=== PATIENT | female | born 1985 | race Two or more races ===

== ENCOUNTER 2025-06-16 19:19 | Emergency (ER) | payer MEDICAID, SELFPAY ==
[2025-06-16 19:20] VITALS: BMI 39.0
[2025-06-16 19:28] VITALS: BP 135/72; PULSE 121; RESP 18; TEMP 36.8; O2SAT 97
--- NOTE | 2025-06-16 19:50 | XR_ITS ---
Examination: CT abdomen and pelvis without contrast. Coronal 3-D reconstructions. Sagittal 2-D reconstructions. Date and time of exam: June 16, 2025, 2135 hours INDICATIONS: Onset pelvic pain today CTDI: vol (mGy): 15 DLP: (mGycm): 825 Technique: Axial images of the abdomen have been obtained, 3 mm slice thickness Intravenous contrast material has not been administered. Low dose protocols were performed. One or more of the following dose reduction techniques were used; automated exposure control, adjustment of the mA and/or KV according to patient size, use of iterative reconstruction technique. Findings: No visualized liver or splenic lesion No gallstones No pancreatic or adrenal mass No renal or ureteral calculi, no hydronephrosis Aorta normal size Normal appendix No bowel obstruction Retroverted uterus No adnexal mass Bladder intact L5-S1 3 mm central lumbar disc bulge contiguous with the right S1 nerve root IMPRESSION: No renal or ureteral calculi, no hydronephrosis Normal appendix No bowel obstruction or diverticulitis Consider pelvic sonography follow-up
[2025-06-16 20:19] LABS: Collection Type, Urine Clean Catch
[2025-06-16 20:20] LABS: Basophils # (Auto) 0.1 Thou/mm3 (0.0-0.2); Basophils % (Auto) 0 % (0-2.5); Eosinophils # (Auto) 0.3 Thou/mm3 (0.0-0.5); Eosinophils % (Auto) 1 % (0-10); Hematocrit 39.8 % (36.0-46.0); Hemoglobin 13.3 g/dL (12.0-16.0); Immature Granulocytes Auto 0.10 Thou/mm3 (0.00-0.00); Lymphocytes # (Auto) 2.5 Thou/mm3 (1.0-4.8); Lymphocytes % (Auto) 14 % (10-50); Mean Corpuscular HGB Conc 33.4 g/dl (31.0-37.0); Mean Corpuscular Hemoglobin 30.1 pg (25.0-35.0); Mean Corpuscular Volume 90 fL (80-100); Monocytes # (Auto) 0.8 Thou/mm3 (0.0-0.8); Monocytes % (Auto) 4 % (0-12); Neutrophils # (Auto) 14.3 Thou/mm3 (1.8-7.7); Neutrophils % (Auto) 79 % (37-80); Nucleated Red Blood Cell # 0.00 Thou/mm3 (0.00-0.00); Nucleated Red Blood Cell % 0 /100 WBC (0); Platelet Count 347 Thou/mm3 (140-440); RDW Standard Deviation 43.2 fL (36.4-46.3); Red Blood Count 4.42 Miln/mm3 (4.00-5.20); White Blood Count 18.0 Thou/mm3 (3.6-11.0)
[2025-06-16 20:33] LABS: Bilirubin,Urine Negative (Negative); Blood,Urine 3+ (Negative); Clarity,Urine Turbid (Clear/Hazy); Color,Urine Lt-Brown (Lt Yel-Yel); Glucose, Urine Negative (Negative); Ketones,Urine Negative (Negative); Leukocyte Esterase,Urine Positive (Negative); Nitrite,Urine Negative (Negative); PH,Urine 6.0 (5.0-7.0); Protein,Urine 1+ (Neg - Trace); RBC,Urine 1122 /hpf (0-3); Specific Gravity,Urine 1.012 (1.001-1.035); Squamous Epithelial Cell,Urine 3 /hpf (0-5); Urobilinogen,Urine Negative mg/dL (0.0-1.0); WBC,Urine 881 /hpf (0-5)
[2025-06-16 20:36] LABS: HCG Qualitative,Urine Negative
[2025-06-16 20:40] LABS: Alanine Aminotransferase 20 U/L (10-49); Albumin, Serum 4.7 gm/dL (3.5-5.0); Albumin/Globulin Ratio 1.7 (1.2-2.2); Alkaline Phosphatase 102 U/L (46-116); Anion Gap 11 (7-16); Aspartate Amino Transferase 18 U/L (0-34); BUN/Creatinine Ratio 12 Ratio (12-20); Bilirubin,Total 0.4 mg/dL (0.3-1.2); Blood Urea Nitrogen 11 mg/dL (9-23); Calcium 9.6 mg/dL (8.3-10.6); Calcium (Corrected) 9.6 mg/dL (8.5-10.1); Carbon Dioxide 24.0 mMol/L (20.0-31.0); Chloride 103 mMol/L (98-107); Creatinine (Component) 0.9 mg/dL (0.6-1.3); Estimated Creatinine Clearance 82.6 mL/min (>60); Globulin 2.8 gm/dL (2.3-3.5); Glucose 127 mg/dL (74-106); Lipase 34 U/L (12-53); Osmolality,Calculated 277 (275-295); Potassium 3.9 mMol/L (3.4-5.1); Sodium 138 mMol/L (136-145); Total Protein 7.5 gm/dL (5.7-8.2); eGFR > 60 See Note
[2025-06-16 22:45] LABS: Lactate (Lactic Acid) 1.4 mMol/L (0.4-2.0)
[2025-06-16] MEDS: cefTRIAXone 2 GM in SODIUM CHLORIDE 0.9% (Popper) 50 ML IV (23:10)
[2025-06-16] MEDS: SODIUM CHLORIDE 0.9% 1000 ML 1,000 ML 1800 ML IV (23:11)
--- NOTE | 2025-06-16 23:25 | EDNOTE_ITS ---
ED Abdominal Pain RME/HPI General Chief Complaint: Abdominal Pain Stated complaint: LOWER ABD PAIN, URINATING BLOOD Time seen by provider: 06/16/25 19:27 Arrival date/time: 06/16/25 19:19 This is a case of 39-year-old female with no medical history came in in the emergency room due to lower abdominal pain radiating to the back associated with painful urination and blood in urine today patient denies any fever chills nausea vomiting worsening of the symptoms this patient decided to sought consult here in the emergency room Limitations: no limitations Related Data Previous Rx's ?Medication ?Instructions ?Recorded naproxen 500 mg tablet 500 mg PO BID PRN pain #30 t abs 06/04/21 cephalexin 500 mg capsule 500 mg PO BID #20 caps 08/01 ciprofloxacin HCl 500 mg tablet 500 mg PO BID 10 days #20 tabs 06/16/25 ondansetron 4 mg disintegrating 4 mg PO Q8H #20 tabs 1 08/16/24 tablet phenazopyridine 200 mg tablet 200 mg PO TID 6 doses #6 tabs 06/16/25 (Pyridium) tramadol 50 mg tablet 50 mg PO Q8H PRN pain #10 ta bs 06/16/25 Allergies Allergy/AdvReac Type Severity Reaction Status Date / Time No Known Allergies Allergy Verified 06/16/25 19:20 Review of Systems Review of Systems Systems Reviewed: All systems reviewed, normal except as documented Constitutional Constitutional: Reports system reviewed and no additional complaints, except as documented and Reports as per HPI ENT Ears, Nose, Mouth, and Throat: Denies dysphagia and Denies odynophagia Cardiovascular Cardiovascular: Reports system reviewed and no additional complaints, except as documented and Reports as per HPI Respiratory Respiratory: Reports system reviewed and no additional complaints, except as documented and Reports as per HPI Gastrointestinal Gastrointestinal: Reports abdominal pain, Denies belching, Denies bloating, Denies change in bowel habits, Denies change in stool character, Denies coffee ground emesis, Denies constipation, Denies cramping, Denies diarrhea, Denies dyspepsia, Denies dysphagia, Denies early satiety, Denies excessive flatus, Mumtaz es fecal incontinence, Denies heartburn, Denies hematemesis, Denies hematochezia, Denies loose stools, Denies melena, Denies nausea, Denies odynophagia, Denies tenesmus and Denies vomiting Genitourinary Genitourinary: Reports system reviewed and no additional complaints, except as documented, Reports dysuria, Reports hematuria and Reports urinary urgency Neurologic Neurologic: Reports system reviewed and no additional complaints, except as documented and Reports as per HPI Past Medical History Past Medical History CARDIAC: Negative Congestive Heart Failure RESPIRATORY: Negative Chronic Obstructive Pulmonary Disease (COPD) GENITOURINARY: Negative Renal Disease ENDOCRINE: Negative Diabetes Mellitus Type 1 or Diabetes Mellitus Type 2 Surgical History SURGICAL: Positive Tubal Ligation Social History SMOKING STATUS: Never smoker ED Exam General Limitations: Present no limitations General appearance: Present alert, in no apparent distress and other Head Head exam: Present atraumatic, normocephalic and normal inspection Eye Eye exam: Present normal appearance, PERRL and EOMI ENT ENT exam: Present normal exam, normal oropharynx and mucous membranes moist Neck Neck exam: Present normal inspection, full ROM and trachea midline; Absent tenderness, meningismus, lymphadenopathy or thyromegaly Chest Chest inspection: Present normal inspection and symmetric chest wall rise; Absent tenderness Respiratory Respiratory exam: Present normal lung sounds bilaterally; Absent respiratory distress, wheezes, stridor, accessory muscle use or prolonged expiratory phase Cardiovascular Cardiovascular exam: Present regular rate, normal rhythm, tachycardia and normal heart sounds; Absent bradycardia, irregular rhythm, systolic murmur or diastolic murmur Abdominal Exam Abdominal exam: Present soft and normal bowel sounds; Absent distention, tenderness, guarding, rebound, rigidity, diminished bowel sounds, hyperactive bowel sounds, hypoactive bowel sounds, organomegaly, psoas sign, obturator sign, Hall's sign, Rovsing's sign, tenderness at McBurney's Point or hernia Extremities Exam Extremities exam: Present normal inspection and full ROM Back Exam Back exam: Present normal inspection and full ROM Neurological Exam Neurological exam: Present alert, oriented X3, CN II-XII intact, normal gait and reflexes normal; Absent motor sensory deficit Psychiatric Psychiatric exam: Present normal affect and normal mood Skin Skin exam: Present warm, dry, intact, normal color and other (Excellent skin turgor) Course Quality Measures none Orders Category Date Time Status CT abdomen pelvis wo con Stat Exams 06/16/25 19:50 Completed Blood Culture (Lab) Stat Lab 06/16/25 22:35 Received CBC Stat Lab 06/16/25 20:08 Completed Comprehensive Metabolic Panel Stat Lab 06/16/25 20:08 Completed HCG Qualitative,Urine Stat Lab 06/16/25 20:13 Completed Lactic Acid [Lactate (Lactic Acid)] Stat Lab 06/16/25 22:30 Completed Lipase Stat Lab 06/16/25 20:08 Completed Urinalysis Stat Lab 06/16/25 20:13 Completed Urine Culture Stat Lab 06/16/25 22:19 Ordered Sodium Chloride 0.9% 1000 ml [Ns] 1,000 ml Med 06/16/25 22:19 Discontinued IV 1,800 mls/hr cefTRIAXone [Rocephin] 2 gm Med 06/16/25 22:19 Discontinued SODIUM CHLORIDE 0.9% (Popper) [Ns 0.9% (P)] 50 ml IV X1 Vital Signs Vital signs: Vital Signs Temperature 98.3 F 06/16/25 19:28 Pulse Rate 121 H 06/16/25 19:28 Respiratory Rate 18 06/16/25 19:28 Blood Pressure 135/72 H 06/16/25 19:28 Pulse Oximetry (%) 97 06/16/25 19:28 Oxygen Delivery Method Room Air 06/16/25 19:28 Oxygen saturation is 97% patient initial tachycardia after bolus of normal saline patient heart rate went down to 95 Abdominal Pain MDM MDM Narrative MDM Narrative:: This is a case of 39-year-old female with no medical history came in in the emergency room due to lower abdominal pain radiating to the back associated with painful urination and blood in urine today patient denies any fever chills nausea vomiting worsening of the symptoms this patient decided to sought consult here in the emergency room physical examination patient is awake alert oriented not in distress nontoxic looking well-hydrated well-nourished noted abdominal exam is benign nonsurgical no guarding no rebound no rigidity no tenderness no CVA tenderness negative psoas negative straight and negative Rovsing's negative McBurney's negative Hall sign negative CVA tenderness excellent skin turgor patient is mildly tachycardic not no murmur normal rhythm lungs clear no whe ezing no rhonchi no crackles no rales rhonchi no stridor the rest of the physical examination neurological exam is normal and unremarkable patient is afebrile vital signs stable patient blood test showed leukocytosis at 18,000 no anemia platelet is normal patient lactic acid is normal blood culture and urine culture is pending no electrolyte imbalance kidney and liver function is normal lipase is normal patient CT scan is also normal except bulging disc lumbar based on my physical examination and history patient has no signs and symptoms of sepsis nor dehydration due to 18,000 of WBC and WBC in the urine and blood patient was given a bolus of normal saline and was given ceftriaxone IM program for urinary tract infection patient was advised to follow-up with PCP in 2 days for reevaluation and for any worsening symptoms or any emergent concern return precaution in the ER was advised patient was prescribed with ciprofloxacin for UTI Zofran for vomiting tramadol for pain and predrawn for painful urination for any worsening symptoms or emergent concern return precaution in the ER is advised Patient was discharged with comfortable condition walking with stable gait. Patient verbalized no further complains explained diagnosis and answered patient question. Patient is comfortable with the proposed management plan including the need to follow up with his/her primary care physician and any specialist if applicable Discussed patient for any urgent condition or worsening sx, He/She needed to go to emergency room immediately or call 911. Patient acknowledge the responsibility to follow up as instructed and to monitor her/his symptoms. For any persistence of the symptoms for more than 3-5 days return precaution advised. Discussed the result of the test and was given printed discharge instruction Patient data External records reviewed:: [facility] previous records Clinical information provided by:: patient Social determinants that could affect healthcare access:: none Patient has the following chronic illnesses:: None How is presenting disease/condition affected by chronic disease/condition?: no chronic disease Evaluation data The following diagnostics were reviewed and interpreted by me:: lab results and radiology exam(s) Lab and/or radiology exams considered but not ordered:: Reviewed Interpretation Summary: Reviewed Medications / Prescriptions Medications or Prescriptions considered but not ordered:: Given Medication administrations:: Medication Administration History Discontinued Medications Sodium Chloride (Ns) 1,000 mls @ 1,800 mls/hr IV .Q34M ONE Stop: 06/16/25 22:52 Last Admin: 06/16/25 23:11 Dose: 1,800 mls/hr Documented By: INDER Ceftriaxone Sodium 2 gm/ (Sodium Chloride) 50 mls @ 100 mls/hr IV X1 ONE Stop: 06/16/25 22:48 Last Admin: 06/16/25 23:10 Dose: 100 mls/hr Documented By: NIDER Given Consultations Consultation(s) initiated? (list below): No Diagnosis Differential diagnosis abdominal pain: abdominal pain, acute appendicitis, calculus of kidney, constipation, diverticulitis, gastroenteritis, pancreatitis and small bowel obstruction Most likely diagnosis given after review of the tests above:: Urinary tract infection Admission Indicated Admission indicated?: not indicated Explain why admission is indicated or not indicated:: Not indicated Admission Request Was there a request for admission?: No Admission Attestation Admission request attestation: Not indicated Disposition Plan Disposition Plan: Discharge Discharge Attestation Discharge Attestation: The patient and all family members were given an opportunity to ask questions and understood the discharge instructions. Discharge instructions specifically effects, indications for sooner follow up or return to the emergency department, and the expected course of current diagnosis. Patient condition: Stable Discharge Plan Plan Patient Disposition: HOME (Self Care) Patient condition on transfer: Stable Prescriptions/Referrals Prescriptions/Med Rec: New ciprofloxacin HCl 500 mg tablet 500 mg PO BID 10 Days Qty: 20 0RF phenazopyridine [Pyridium] 200 mg tablet 200 mg PO TID 0 Days Qty: 6 0RF tramadol 50 mg tablet 50 mg PO Q8H MDD max 4 tabs per day PRN (Reason: pain) Qty: 10 0RF ondansetron 4 mg tablet,disintegrating 4 mg PO Q8H Qty: 20 0RF No Action naproxen 500 mg tablet 500 mg PO BID PRN (Reason: pain) Qty: 30 0RF cephalexin 500 mg capsule 500 mg PO BID Qty: 20 0RF Referrals: Nikki Koch, RIBBER [Primary Care Provider] - In 1 week Problem List Clinical Impression: Abdominal pain, Urinary tract infection, Bulging lumbar disc Patient/Caregiver Discharge Instructions Education Materials: Abdominal Pain, Urinary Tract Infections in Women, ED Degenerative Disk Disease Additional Instructions: Follow-up with your primary care physician in 2 days for reevaluation and to be referred to neurosurgeon for further evaluation and treatment of lumbar bulging disc for possible MRI to rule out herniated disc worsening symptoms or any emergent concerns such as fever chills abdominal pain nausea vomiting etc. return to the emergency room immediately or call 911 take your medication as directed finish the course of antibiotic Pedialyte Gatorade for hydration is advised Print Language: [place] Island[place] Stand Alone Forms: Court Award Info., Patient Portal Info Letter PA/[employer] Supervising Physician PA/REYNALDO Supervising Physician: Dr. Kashmir Link
== END 2025-06-17 00:26 | disposition home or self-care (01) ==
PROVIDERS: Nurse Practitioner Family; Emergency Provider Emergency Medicine; PCP Nurse Practitioner Family
DX: N39.0 Urinary tract infection, site not specified (principal); M51.369 Other intervertebral disc degeneration, lumbar region without mention of lumbar back pain or lower extremity pain; Z98.51 Tubal ligation status
CPT/HCPCS: 36415; 74176; 80053; 81001; 81025; 83605; 83690; 85025; 87040; 87086; 96365; 99283; J0696; J7030; J7050